=== PATIENT | female | born 2005 | race Caucasian/White ===

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

== ENCOUNTER 2023-02-02 10:13 | Outpatient (CLI) | payer OTHER, SELFPAY ==
--- NOTE | ~2023-02-02 | US_ITS ---
US breast LT limited 02/02/2023 11:04 Indication: Follow-up left breast mass Procedure: High-resolution Limited ultrasound of the left breast Comparison: Ultrasound dated 09/07/2022 Findings: At 5-7 o'clock, there is an oval slightly hypoechoic mass with heterogeneous internal echot exture measuring 9.5 x 8.5 x 7.4 cm. The morphology is slightly altered with increased echogenicity a nd slightly wider appearance compared with prior examination. Impression: 1: Increased size of left breast mass at C5-7 o'clock with slightly altered morphology. Ultrasound-gu ided left breast biopsy recommended. BI-RADS CATEGORY 4-SUSPICIOUS ABNORMALITY RECOMMENDATION: Left breast biopsy recommended. Reviewed, dictated and finalized at [facility]. Impression: 1: Increased size of left breast mass at C5-7 o'clock with slightly altered mor phology. Ultrasound-guided left breast biopsy recommended. BI-RADS CATEGORY 4-SUSPICIOUS ABNORMALITY RECOMMENDATION: Left breast biopsy recommended.
== END 2023-02-02 10:14 | disposition home or self-care (01) ==
PROVIDERS: Visit Provider Nurse Practitioner Obstetrics & Gynecology
DX: N63.24 Unspecified lump in the left breast, lower inner quadrant (principal)
CPT/HCPCS: 76642

== ENCOUNTER 2023-06-28 15:25 | Emergency (ER) | payer MEDICAID, SELFPAY ==
[2023-06-28 15:35] VITALS: BP 129/72; PULSE 77; RESP 16; TEMP 37.1; O2SAT 100
--- NOTE | 2023-06-28 15:48 | ED.SKABFB ---
HPI - Skin/Abscess/Foreign Bdy General Chief complaint: Skin/Abscess/Foreign Body Stated complaint: Rt Foot Pain Source: patient Mode of arrival: ambulatory Limitations: no limitations History of Present Illness HPI narrative: 18-year-old female presented for evaluation after stepping on a pencil today. She endorses the lead broke the skin on the bottom of the midfoot, she was able to remove the pencil intact. Denies numbness, tingling or weakness, denies active bleeding or foreign body sensation. Cleansed the site and applied neosporin. Related Data Home Medications Medication Instructions Recorded Confirmed beclomethasone dipropionate 80 1 inh inhalation Q12H 12/16/20 06/28/23 mcg/actuation HFA breath activated aerosol (Qvar RediHaler) fluticasone propionate 50 1 spray intranasal BID 12/16/20 06/28/23 mcg/actuation nasal spray,suspension (Flonase Allergy Relief) montelukast 10 mg tablet 10 mg PO DAILY 12/16/20 06/28/23 (Singulair) albuterol sulfate 90 mcg/actuation 1 mcg inhalation PRN 12/31/20 06/28/23 aerosol inhaler Allergies Allergy/AdvReac Type Severity Reaction Status Date / Time No Known Allergies Allergy Verified 06/28/23 15:33 Review of Systems Review of Systems: CONSTITUTIONAL: Denies body aches, fever, chills, or sweats. EYES: Denies visual changes, redness, or discharge. ENT: Denies rhinorrhea, congestion CARDIOVASCULAR: Denies chest pain, palpitations, or edema. RESPIRATORY: Denies cough or dyspnea. GASTROINTESTINAL: Denies abdominal pain, nausea, vomiting, or diarrhea. SKIN: right foot wound MUSCULOSKELETAL: Denies back pain, joint pain, or myalgia. NEUROLOGIC: Denies headache, numbness, tingling, or weakness. FOR[facility]LY [facility] Past Medical History Medical History Asthma Family History Family History Father Diabetes mellitus Hypertension Mother Hypertension Sibling Cancer Unknown Asthma Social History Social History Smoking status: Never smoker Second hand tobacco smoke exposure: No Alcohol intake: never Substance use: never Substance use type: does not use Living arrangements: with family Gender identity (if verbalized by the patient): Female Spiritual care concerns: No Comments At time of signature, I have reviewed and agree with nursing past medical, surgical, social and family history unless otherwise noted. Please see nursing chart for further information. There is no relevant family history pertinent to the presenting complaint Exam Narrative: GENERAL: Well-appearing HEAD: Normocephalic, atraumatic. EYES: conjunctivae clear, and EOMI. ENT: Mucous membranes moist. Oropharynx without edema, erythema or lesions. NECK: Supple. No lymphadenopathy CHEST: Clear to auscultation. HEART: Regular rate and rhythm. SKIN: Warm, dry. Right mid foot plantar surface with approx 3mm puncture site , no active bleeding or swelling; no FB. nontender. NEURO: Alert and oriented x3. Course Course Emergency Course: Patient is aware of diagnosis, understands and agrees to treatment plan. Anticipatory guidance given. Patient agrees to follow-up as directed and is aware of reasons to seek care at the emergency department. Portions of this record may have been created with voice recognition software Level of Care: Express Care Visit Vital Signs Vital signs: Vital Signs Temperature 98.7 F 06/28/23 15:35 Pulse Rate 77 06/28/23 15:35 Respiratory Rate 16 06/28/23 15:35 Blood Pressure 129/72 06/28/23 15:35 Pulse Oximetry 100 06/28/23 15:35 Oxygen Delivery Room Air 06/28/23 15:35 Temperature 98.7 F 06/28/23 15:35 Pulse Rate 77 06/28/23 15:35 Respiratory Rate 16 06/28/23 15:35 Blood Pressure 129/72 06/28/23 15:35 Pulse Oximetry 100
== END 2023-06-28 15:53 | disposition home or self-care (01) ==
PROVIDERS: Emergency Provider Nurse Practitioner Family
DX: S91.331A Puncture wound without foreign body, right foot, initial encounter (principal); W27.8XXA Contact with other nonpowered hand tool, initial encounter; J45.909 Unspecified asthma, uncomplicated
CPT/HCPCS: 99212; G0463

== ENCOUNTER 2023-10-16 12:04 | Emergency (ER) | payer OTHER, SELFPAY ==
[2023-10-16 12:51] VITALS: BP 132/77; PULSE 103; RESP 18; TEMP 36.7; O2SAT 100
--- NOTE | 2023-10-16 13:44 | ED.WOUNDLAC ---
HPI - Wound/Laceration General Chief Complaint: Wound/Laceration Stated Complaint: open wound on lt breast Time Seen by Provider: 10/16/23 13:32 Source: patient and RN notes reviewed Mode of arrival: ambulatory Limitations: no limitations History of Present Illness HPI narrative: Patient presents today complaining of a bleeding wound to her left breast. Patient states she has a large benign mass to her left breast with an open wound that has been present for the past 2 months. States the open wound started bleeding today. She is due for surgery to have it removed in October by Dr. Tabares in [place] at [facility]. She has tried to call the surgeon's office today and left a voicemail with the nurse, but has not yet got a phone call back. States the surgeon is aware of the open wound. Denies pain. Related Data Home Medications Medication Instructions Recorded Confirmed albuterol sulfate 90 mcg/actuation 1 mcg inhalation PRN 12/31/20 10/16/23 aerosol inhaler Allergies Allergy/AdvReac Type Severity Reaction Status Date / Time No Known Allergies Allergy Verified 10/16/23 13:06 Review of Systems Review of Systems: CONSTITUTIONAL: Denies body aches, fever, chills, or sweats. EYES: Denies visual changes, redness, or discharge. ENT: Denies rhinorrhea, congestion, sore throat, or otalgia. CARDIOVASCULAR: Denies chest pain, palpitations, or edema. RESPIRATORY: Denies cough or dyspnea. GASTROINTESTINAL: Denies abdominal pain, nausea, vomiting, or diarrhea. GENITOURINARY: Denies dysuria or hematuria. SKIN: + bleeding mass to left breast MUSCULOSKELETAL: Denies back pain, joint pain, or myalgia. NEUROLOGIC: Denies headache, numbness, tingling, or weakness. PSYCH: Denies depression or anxiety. FORMERLY [facility] Past Medical History Medical History Asthma Family History Family History Father Diabetes mellitus Hypertension Mother Hypertension Sibling Cancer Unknown Asthma Social History Social History Smoking status: Never smoker Second hand tobacco smoke exposure: No Alcohol intake: never Substance use: never Substance use type: does not use Living arrangements: with family Gender identity (if verbalized by the patient): Female Spiritual care concerns: No Comments At time of signature, I have reviewed and agree with nursing past medical, surgical, social and family history unless otherwise noted. Please see nursing chart for further information. There is no relevant family history pertinent to the presenting complaint Exam Narrative: GENERAL: Well-appearing, well-nourished, and in no acute distress. HEAD: Normocephalic, atraumatic. EYES: EOMI. No redness or drainage. Conjunctivae normal. ENT: Mucous membranes pink and moist. NECK: Normal AROM. CHEST: No respiratory distress. Large mass to lower left breast with approx 5x5cm round open wound to 6oclock position. Mild active bleeding present. Patient has lower half the breast covered in clear adhesive dressing. EXTREMITIES: Normal range of motion. No edema. SKIN: Warm, dry, no rash. Capillary refill normal. Normal skin turgor. NEURO: No focal deficits. Alert and oriented x3. Gait steady. PSYCH: Normal affect. No signs of depression or anxiety. Course Course Level of Care: Express Care Visit Vital Signs Vital signs: Vital Signs Temperature 98.1 F 10/16/23 12:51 Pulse Rate 103 H 10/16/23 12:51 Respiratory Rate 18 10/16/23 12:51 Blood Pressure 132/77 10/16/23 12:51 Pulse Oximetry 100 10/16/23 12:51 Oxygen Delivery Room Air 10/16/23 12:51 Temperature 98.1 F 10/16/23 12:51 Pulse Rate 103 H 10/16/23 12:51 Respiratory Rate 18 10/16/23 12:51 Blood Pressure 132/77 10/16/23 12:51 Pulse Oximetry 100
== END 2023-10-16 14:12 | disposition home or self-care (01) ==
PROVIDERS: Emergency Provider Nurse Practitioner
DX: S21.002A Unspecified open wound of left breast, initial encounter (principal); J45.909 Unspecified asthma, uncomplicated; X58.XXXA Exposure to other specified factors, initial encounter
CPT/HCPCS: 99213; G0463